=== PATIENT | female | born 1960 | race American Indian/Alaskan Native ===

== ENCOUNTER 2016-11-17 16:14 | Observation (INO) | payer MEDICAID ==
[2016-11-17 16:47] VITALS: BMI 25.4
--- NOTE | 2016-11-17 17:40 | ED PDOC ---
Arrival/HPI - General Chief Complaint: Chest Pain Time Seen by Provider: 11/17/16 16:21 Historian: Patient - History of Present Illness Narrative History of Present Illness (Text): 11/17/16 17:37 Patient past medical history of hypertension, reports sudden onset of left- sided rib and left upper back pain described as a tightness sensation that was radiating around to the left side of her chest associated with SOB, palpitations , numbness to both hands and tingling sensation to the left arm, states that the episode happened when she was sitting and resting at home around 2 PM, lasted for 1 hour, and resolved on its own, states that she did take 325 mg of ASA and her BP medication - valsartan [employer]GER [employer]ISTR[employer]. Patient states that she has had similar symptoms in the past, intermittently over the past 2 years, states that she has been admitted in the past in this hospital for the following symptoms, however has not seen a regulatory analyst for follow-up. Patient reports no back pain or chest pain at this time. States that her last stress test was done 3 years ago at [facility], she does not know the results of that test. Otherwise: (+) radiation, (-) diaphoresis, (-) dyspnea, (-) pleuritic component , (-) ripping or tearing quality, (-) positional component, (-) exertional component, (-) dizziness, (-) syncope, (-) nausea, (-) vomiting, (-) calf swelling/pain, (-) neuro deficits, (-) recent travel, (-) echo PMD Geronimo. Past Medical History - Provider Review Nursing Documentation Reviewed: Yes - Past History Past History: No Previous - Infectious Disease Hx of Infectious Diseases: None - Tetanus Immunization Tetanus Immunization: Unknown - Cardiac Hx Cardiac Disorders: Yes Hx Hypertension: Yes - Pulmonary Hx Respiratory Disorders: No - Neurological Hx Neurological Disorder: No - HEENT Hx HEENT Disorder: No - Renal Hx Renal Disorder: No - Endocrine/Metabolic Hx Endocrine Disorders: No - Hematological/Oncological Hx Blood Disorders: No - Integumentary Hx Dermatological Disorder: No - Musculoskeletal/Rheumatological Hx Musculoskeletal Disorders: No - Gastrointestinal Hx Gastrointestinal Disorders: No - Genitourinary/Gynecological Hx Genitourinary Disorders: No - Psychiatric Hx Psychophysiologic Disorder: Yes Hx Depression: Yes Hx Emotional Abuse: No Hx Physical Abuse: No Hx Substance Use: No - Past Surgical History Past Surgical History: No Previous - Suicidal Assessment Feels Threatened In Home Enviroment: No Family/Social History - Physician Review Nursing Documentation Reviewed: Yes Family/Social History: CVA/TIA (mother), Hypertension (father) Smoking Status: Never Smoked Hx Alcohol Use: No Hx Substance Use: No Hx Substance Use Treatment: No Allergies/Home Meds Allergies/Adverse Reactions: Allergies No Known Allergies Allergy (Verified 10/04/12 19:40) Home Medications: Home Meds Medication Instructions Recorded Confirmed Atorvastatin [Lipitor] 20 mg PO DAILY 11/17/16 11/17/16 Valsartan [Diovan] 160 mg PO DAILY 11/17/16 11/17/16 Review of Systems - Review of Systems Constitutional: Normal. absent: Fatigue, Weight Change, Fevers ENT: Normal. absent: Hearing Changes, Tinnitus Respiratory: Normal, SOB (prior episodes related to chest pain). absent: Cough , Sputum Cardiovascular: Normal, Chest Pain (prior episodes x 2 yrs), Palpitations ( prior episodes related to chest pain ). absent: Edema Gastrointestinal: Normal. absent: Abdominal Pain, Stool Changes, Appetite Changes Musculoskeletal: Normal. absent: Arthralgias, Back Pain Skin: Normal. absent: Rash, Pruritis, Skin Lesions Neurological: Normal. absent: Headache, Dizziness, Focal Weakness Physical Exam - Physical Exam Narrative Physical Exam (Text): 11/17/16 17:42 GENERAL APPEARANCE: Patient is awake, alert, oriented x 3, anxious, in no acute distress. SKIN: Warm, dry; (-) cyanosis. EYES: (-) conjunctival pallor. ENMT: Mucous membranes moist. NECK: (-) tenderness, (-) stiffness, (-) lymphadenopathy, (-) JVD. CHEST AND RESPIRATORY: (-) rash, (-) chest wall tenderness. Lungs: (-) rales , (-) rhonchi, (-) wheezes, (-) rub; breath sounds equal bilaterally. HEART AND CARDIOVASCULAR: (-) irregularity; (-) murmur, (-) gallop, (-) rub. ABDOMEN AND GI: Soft; (-) distention, (-) tenderness, (-) palpable pulsatile mass. BACK: (-) midline to paravertebral tenderness. EXTREMITIES: (-) deformity; (-) edema, (-) calf tenderness. (+) distal pulses. NEURO AND PSYCH: Mental status as above. Cranial nerves grossly intact; strength symmetric. Vital Signs Temp Pulse Resp BP Pulse Ox 11/17/16 16:46 98.1 F 79 16 152/103 H 100 Medical Decision Making ED Course and Treatment: 11/17/16 17:43 56 yo F with past medical history of hypertension, but significant family history of VA and hypertension, presents with left-sided chest pain. Patient took aspirin and valsartan prior to arrival. Plan: -- Labs -- Heart monitor -- Urinalysis -- EKG -- CXR -- Reassess and disposition EKG: NSR at 70 bpm, (-) acute ST changes, as read by ANDREW. CXR : NAD, as read by ANDREW 11/17/16 19:20 On reevaluation, patient appears well, he remains awake, alert, oriented 3. Patient has no complaints of any chest pain, shortness of breath, palpitations, back pain or diaphoresis at this time. On exam, lungs remain clear to auscultation, cardiac regular rate and rhythm. Vital signs are stable. Labs reviewed, troponin and CK-MB are both negative. Called patient's PMD for disposition. Case discussed with Dr. Ferreira, agrees with plan for inpatient telemetry observation for further evaluation of patient's symptoms. Requesting for consult to Dr. Rigoberto Mock for cardiology Patient states she fully agrees with and understands current plan and disposition. I have given the patient opportunity to ask any additional questions. Bridge orders and consults placed. - Lab Interpretations Lab Results: 11/17/16 17:45 11/17/16 17:45 Lab Results 11/17/16 17:45: WBC 4.4 L D, RBC 4.16, Hgb 11.8 L, Hct 36.2, MCV 87.0, MCH 28.4 , MCHC 32.6, RDW 15.0 H, Plt Count 204, MPV 12.2 H, Gran % 37.9 L, Lymph % (Auto ) 51.0 H, [place] % (Auto) 9.1 H, Eos % (Auto) 0.9 L, Baso % (Auto) 1.1, Gran # 1.66, Lymph # 2.2, [place] # 0.4, Eos # 0.0, Baso # 0.05, Sodium 141, Potassium 4.2 , Chloride 103, Carbon Dioxide 31, Anion Gap 11, BUN 10, Creatinine 0.8, Est GFR ( Amer) > 60, Est GFR (Non-Af Amer) > 60, Random Glucose 83, Calcium 9.5, Magnesium 2.2, Total Bilirubin 0.3, AST 44 H, ALT 39, Alkaline Phosphatase 85, Lactate Dehydrogenase 781 H, Total Creatine Kinase 314 H, CK-MB (CK-2) 3.0, CK-MB (CK-2) % Cancelled, Troponin I < 0.01, Total Protein 7.8, Albumin 4.2, Globulin 3.6, Albumin/Globulin Ratio 1.2, Urine Color Straw, Urine Appearance Clear, Urine pH 6.5, Ur Specific Gilbert 1.010, Urine Protein Negative, Urine Glucose (UA) Negative, Urine Ketones Negative, Urine Blood Negative, Urine Nitrate Negative, Urine Bilirubin Negative, Urine Urobilinogen 0.2, Ur Leukocyte Esterase Negative I have reviewed the lab results: Yes (trop (-), ck mb (-)) - RAD Interpretation Radiology Orders: 11/17/16 17:22 CHEST PORTABLE [RAD] Stat - PA / [employer]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 Disposition/Present on Arrival - Present on Arrival Any Indicators Present on Arrival: No History of DVT/PE: No History of Uncontrolled Diabetes: No Urinary Catheter: No History of Decub. Ulcer: No History Surgical Site Infection Following: None - Disposition Have Diagnosis and Disposition been Completed?: Yes Diagnosis: Chest pain Disposition: HOSPITALIZED Disposition Time: 19:00 Patient Plan: Observation, Telemetry (obs inpatient) Condition: STABLE Referrals: Tomasz Geronimo DO [Primary Care Provider] - Follow up with primary
[2016-11-17 17:46] LABS: ADD MANUAL DIFF? NO
[2016-11-17 18:01] LABS: BASO # 0.05 K/mm3 (0.0-2.0); BASO % 1.1 % (0.0-3.0); EOS % 0.9 % (1.5-5.0); GRAN # 1.66 (1.4-6.5); GRAN % 37.9 % (50.0-68.0); HEMATOCRIT 36.2 % (36.0-48.0); LYMPH # 2.2 (1.2-3.4); MEAN CORPUSCULAR HEMOGLOBIN 28.4 pg (25.0-35.0); MEAN CORPUSCULAR HGB CONC 32.6 g/dl (31.0-37.0); MEAN PLATELET VOLUME 12.2 fl (7.0-11.0); MONO # 0.4 (0.1-0.6); MONO % 9.1 % (1.0-6.0); PLATELET COUNT 204 10^3/uL (120.0-450.0); WHITE BLOOD COUNT 4.4 10^3/ul (4.5-11.0)
[2016-11-17 18:04] LABS: PH,URINE 6.5 (4.7-8.0); URINE BILIRUBIN NEGATIVE (NEGATIVE); URINE BLOOD NEGATIVE (NEGATIVE); URINE GLUCOSE (UA) NEGATIVE (NEGATIVE); URINE KETONE NEGATIVE (NEGATIVE); URINE LEUKOCYTE ESTERASE NEGATIVE Leu/uL (NEGATIVE); URINE PROTEIN NEGATIVE mg/dL (<30 mg/dL); URINE UROBILINOGEN 0.2 E.U./dL (<1 E.U./dL)
[2016-11-17 18:05] LABS: URINE APPEARANCE CLEAR (CLEAR); URINE COLOR STRAW (YELLOW)
[2016-11-17 18:07] LABS: ALB/GLOB RATIO 1.2 (1.1-1.8); ALKALINE PHOSPHATASE 85 U/L (38-133); ALT/SGPT 39 U/L (7-56); AST/SGOT 44 U/L (15-39); BILIRUBIN,TOTAL 0.3 mg/dL (0.2-1.3); BLOOD UREA NITROGEN 10 mg/dL (7-21); CALCIUM 9.5 mg/dL (8.4-10.5); CARBON DIOXIDE 31 mmol/L (21-33); CHLORIDE 103 mmol/L (98-107); GFR AFRICAN-AMERICAN > 60; GLUCOSE,RANDOM 83 mg/dL (70-110); MAGNESIUM 2.2 mg/dL (1.7-2.2); POTASSIUM 4.2 mmol/L (3.6-5.0); SODIUM 141 mmol/L (132-148); TOTAL PROTEIN 7.8 g/dL (5.8-8.3)
[2016-11-17 18:24] LABS: TROPONIN I < 0.01 ng/mL
--- NOTE | 2016-11-17 21:38 | CARD ---
APPROVED REPORT EKG Measurement Heart [id number] <Conclusion> Normal sinus rhythm Normal ECG
[2016-11-17 23:25] VITALS: RESP 18
[2016-11-18 06:46] VITALS: O2SAT 99
[2016-11-18 07:09] LABS: HEMATOCRIT 32.9 % (36.0-48.0); MEAN CELL VOLUME 86.8 fL (80.0-105.0); MEAN CORPUSCULAR HEMOGLOBIN 28.2 pg (25.0-35.0); MEAN CORPUSCULAR HGB CONC 32.5 g/dl (31.0-37.0); MEAN PLATELET VOLUME 12.7 fl (7.0-11.0); WHITE BLOOD COUNT 5.3 10^3/ul (4.5-11.0)
[2016-11-18 07:13] LABS: ALB/GLOB RATIO 1.1 (1.1-1.8); ALKALINE PHOSPHATASE 65 U/L (38-133); ALT/SGPT 32 U/L (7-56); AST/SGOT 35 U/L (15-39); BILIRUBIN,TOTAL 0.4 mg/dL (0.2-1.3); BLOOD UREA NITROGEN 12 mg/dL (7-21); CALCIUM 8.8 mg/dL (8.4-10.5); CARBON DIOXIDE 30 mmol/L (21-33); CHLORIDE 107 mmol/L (98-107); GFR AFRICAN-AMERICAN > 60; GLUCOSE,RANDOM 94 mg/dL (70-110); SODIUM 140 mmol/L (132-148); TOTAL PROTEIN 6.8 g/dL (5.8-8.3)
[2016-11-18 07:27] LABS: TROPONIN I < 0.01 ng/mL
--- NOTE | 2016-11-18 08:27 | DS ---
She is feeling better, slept well. No chest pain anymore. Her arms do get stiff from time to time. PHYSICAL EXAMINATION: VITAL SIGNS: She has 98.4 temp, 80 pulse, 137/82 blood pressure, 18 respiratory rate, 99% O2 sat on room air. HEENT: Head is atraumatic, normocephalic. HEART: Regular rate. LUNGS: Clear to auscultation. ABDOMEN: Soft. EXTREMITIES: No edema. MEDICATIONS: She will take her Lipitor, Diovan. LABORATORY DATA: Good. All 3 troponins were negative. I am going to increase her diet to regular f ood, 2 gram sodium. It was okay with Dr. Mock this morning, will discharge her to outpatient followu p. I think she will do very well. Tomasz Geronimo DO cc: [id number] TT: 11/18/2016 08:26:09 curtis
--- NOTE | 2016-11-18 08:53 | RAD ---
HISTORY: Chest pain COMPARISON: 05/13/2014. FINDINGS: LUNGS: The lungs are well inflated and clear. PLEURA: No significant pleural effusion identified, no pneumothorax apparent. CARDIOVASCULAR: Normal. OSSEOUS STRUCTURES: No significant abnormalities. VISUALIZED UPPER ABDOMEN: Normal. OTHER FINDINGS: None. IMPRESSION: No active pulmonary disease.
--- NOTE | 2016-11-18 09:02 | HP ---
I saw the patient in her room at [facility]. She had a sudden onset of left-sided rib pa in, left upper back pain, tightness sensation. It went into the left side of her chest, shortness of breath, palpitation, numbness, tingling left arm. It happened when she was resting. She took an as pirin 325 and her blood pressure meds, which was valsartan. She had similar episodes like this in th e past, has not seen a fast food worker and is now here in the hospital getting troponins and cardiology evaluation. PAST MEDICAL HISTORY: Hypertension, depression. PAST SURGICAL HISTORY: No surgeries. FAMILY HISTORY: There is a CVA, TIA with the mother, hypertension with the father. SOCIAL HISTORY: She never smoked. No alcohol, no drugs. ALLERGIES: No known drug allergies. She has high cholesterol and she has hypertension. MEDICATIONS: She takes Lipitor and Diovan. REVIEW OF SYSTEMS: No acute vision changes, no acute hearing changes, no sore throat, no neck pain. Not fatigued. No weight change, no fever, no ringing in the ears. There is some shortness of breat h when she gets the chest pain and tightness. There is chest pain and tightness and palpitations. N o swelling of the legs. No nausea, vomiting, constipation, diarrhea. She has good appetite. She ca n move all 4 extremities well, even though there is some numbness and pains in the left arm. Skin fo r the most part is intact. No rashes or lesions. Not dizzy. No focal weakness. PHYSICAL EXAMINATION: VITAL SIGNS: She has 98.1 temperature, 79 pulse, 16 respiratory rate, 152/103 blood pressure, 100% O 2 sat. The blood pressure did come down to 139/80. HEENT: Head is atraumatic, normocephalic. Alert and oriented x 3. No acute distress. Throat is mo ist, no erythema. NECK: Supple, no JVD. HEART: Regular rate. LUNGS: Have decreased breath sounds, but clear to auscultation bilaterally. No wheezes, no rhonchi, no rales. ABDOMEN: Soft, nontender, positive bowel sounds, no guarding, no rebound, no CVA tenderness. EXTREMITIES: Have no edema. NEUROLOGIC: She is alert and oriented x 3. Cranial nerves II-XII grossly intact. LYMPHATIC: Thyroid midline. No palpable appreciative lymphadenopathy. LABORATORIES: She had multiple. She has a 5.3 white count, 10.7 hemoglobin, 32.9 hematocrit with 19 7 platelets. Sodium 140, potassium is 4, BUN 12, creatinine 0.8, GFR is greater than 60, sugar is 94 , calcium is 8.8, total bili is 0.4, AST 35, ALT is 32, alkaline phosphatase 65. Lactic dehydrogenas e 781, a little bit high. All 3 troponins are less than 0.01. Total protein 6.8. Urine was clean. EKG, normal sinus rhythm. Chest x-ray is pending. There is a consult with Dr. Mock. I am hoping that after she sees Dr. Mock, he can agree for outpati ent stress test possibly and we can discharge her today. She is in observation. She is here for lef t chest pain, shortness of breath. My plan is to discharge her later today. The patient has chest p ain, left arm pain and tightness with a history of hypertension and high cholesterol. Tomasz Geronimo DO cc: [id number] TT: 11/18/2016 09:01:16 en
[2016-11-18 11:51] VITALS: BP 131/81; TEMP 97.1
--- NOTE | 2016-11-18 13:51 | CON ---
DATE: 11/18/2016 HISTORY OF PRESENT ILLNESS: The patient is a 56-year-old woman who presents with atypical focal righ t-sided chest discomfort. PAST MEDICAL HISTORY: Includes a history of hypertension and recurrent palpitations. No previous ca rdiac history is noted. She denies diabetes mellitus. SOCIAL HISTORY: The patient is not an active smoker. REVIEW OF SYSTEMS: A 14-point review of systems was reviewed in detail. Her cardiac symptomatology has resolved. PHYSICAL EXAMINATION: VITAL SIGNS: Stable, heart rate is stable. NECK: Negative JVD. LUNGS: Without rales. HEART: Revealed S1, S2. EXTREMITIES: Without edema. EKG is unremarkable. Troponins are negative x 3. IMPRESSION: 1. Atypical chest pain. 2. No evidence for acute coronary syndrome. 3. Palpitations. 4. Hypertension. Given these findings, the patient can be discharged given her lack of evidence for an acute cardiac i ssues. I will arrange for an outpatient stress test given her cardiac risk factors. Rigoberto Mock MD cc: [id number] TT: 11/18/2016 13:51:07 Confirmation # [id number] Dictation # [id number]
[2016-11-18 15:04] VITALS: PULSE 69
== END 2016-11-18 15:14 | disposition home or self-care (01) ==
LOC: ED 16:14 → ERH 19:48 → 2RNO 21:33
PROVIDERS: ADMIT Family Medicine; ATTEND Family Medicine
DX: R07.89 Other chest pain (principal); R00.2 Palpitations; I10 Essential (primary) hypertension; E78.00 Pure hypercholesterolemia, unspecified; M79.602 Pain in left arm; Z79.899 Other long term (current) drug therapy; Z82.3 Family history of stroke; Z82.49 Family history of ischemic heart disease and other diseases of the circulatory system
CPT/HCPCS: 36415; 71010; 80053; 81003; 82550; 82553; 83615; 83735; 84484; 85025; 85027; 93005; 99281; G0378

== ENCOUNTER 2018-07-22 07:04 | Observation (INO) | payer MEDICAID ==
[2018-07-22 07:40] VITALS: BMI 26.6
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
[2018-07-22 08:14] LABS: BASO # 0.05 K/mm3 (0.0-2.0); BASO % 0.6 % (0.0-3.0); EOS % 0.5 % (1.5-5.0); GRAN # 1.8 (1.4-6.5); GRAN % 23.4 % (50.0-68.0); HEMOGLOBIN 11.2 g/dL (12.0-16.0); LYMPH # 5.1 (1.2-3.4); LYMPH % 65.9 % (22.0-35.0); MEAN CELL VOLUME 90.1 fl (80.0-105.0); MEAN CORPUSCULAR HEMOGLOBIN 29.1 pg (25.0-35.0); MEAN CORPUSCULAR HGB CONC 32.3 g/dl (31.0-37.0); MEAN PLATELET VOLUME 12.4 fl (7.0-11.0); MONO # 0.7 (0.1-0.6); MONO % 9.6 % (1.0-6.0); RBC 3.85 10^6/uL (3.5-6.1); RED CELL DISTRIBUTION WIDTH 13.9 % (11.5-14.5); WHITE BLOOD COUNT 7.7 10^3/uL (4.5-11.0)
[2018-07-22 08:44] LABS: ALB/GLOB RATIO 1.3 (1.1-1.8); ALBUMIN 4.2 g/dL (3.0-4.8); ALT/SGPT 21 U/L (7-56); AST/SGOT 27 U/L (14-36); BLOOD UREA NITROGEN 11 mg/dL (7-21); CALCIUM 9.3 mg/dL (8.4-10.5); GFR NON-AFRICAN AMERICAN > 60
[2018-07-22 08:56] LABS: B-TYPE NATRIURETIC PEPTIDE 59.2 pg/mL (0-450); TROPONIN I < 0.01 ng/mL
--- NOTE | 2018-07-22 10:36 | RAD ---
Date of service: 07/22/2018 HISTORY: sob COMPARISON: 05/08/2017 TECHNIQUE: Chest PA and lateral FINDINGS: LUNGS: No active pulmonary disease. PLEURA: No significant pleural effusion identified. No pneumothorax apparent. CARDIOVASCULAR: No aortic atherosclerotic calcification present. Normal cardiac size. No pulmonary vascular congestion. 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 VISUALIZED UPPER ABDOMEN: Normal. OTHER FINDINGS: None. IMPRESSION: No active disease.
[2018-07-22] MEDS ORDERED: Pneumococcal 23-Valent Vaccine IM ONE (14:25)
[2018-07-22] MEDS ORDERED: Influenza Vaccine 60 mcg/0.5 mL SYR (4YR UP) IM ONE (14:25)
[2018-07-22] MEDS ORDERED: Fluticasone Nasal 50 mcg/Spray NS PRN (14:34)
--- NOTE | 2018-07-22 14:45 | CARD ---
APPROVED REPORT Date of service: 07/22/2018 EKG Measurement Heart [id number] <Conclusion> Normal sinus rhythm Normal ECG
--- NOTE | 2018-07-22 15:45 | CON ---
DATE: 07/22/2018 CARDIOLOGY CONSULTATION HISTORY: The patient is a 58-year-old woman, who suffers from hypertension, hypercholesterolemia, and is on medications for rheumatoid arthritis. She apparently had medications changed for her blood pressure as well as had a flu shot and developed discomfort as well as intermittent shortness of breath. All these symptoms have now resolved. The patient underwent a stress test 1 year ago for similar symptoms where her stress test was normal with normal LV function. She denies diabetes mellitus. SOCIAL HISTORY: The patient does not smoke, but does smoke marijuana REVIEW OF SYSTEMS: Fourteen-point review of systems was reviewed. No cardiac symptoms are noted. PHYSICAL EXAMINATION: VITAL SIGNS: Blood pressure is 141/96, heart rate is in the 70s. NECK: Negative JVD. LUNGS: Without rales. HEART: Reveals S1, S2. EXTREMITIES: Without edema. IMAGING DATA: EKG shows no acute changes. LABORATORY DATA: Troponin is negative x1. Hemoglobin is 11.2. IMPRESSION: 1. Atypical chest pain. 2. No evidence for acute coronary syndrome. 3. Hypertension. 4. Hypercholesterolemia. 5. Rheumatoid arthritis. PLAN: Given these findings, it is unlikely the patient's symptoms are from an ischemic cardiac episode. We will obtain a troponin in the morning. If negative, the patient can be discharged, and we will arrange for an outpatient stress test. Rigoberto Mock MD
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
[2018-07-23 02:32] VITALS: RESP 20
[2018-07-23 06:39] LABS: HEMOGLOBIN 11.5 g/dL (12.0-16.0); MEAN CELL VOLUME 90.6 fl (80.0-105.0); MEAN CORPUSCULAR HEMOGLOBIN 28.5 pg (25.0-35.0); MEAN CORPUSCULAR HGB CONC 31.4 g/dl (31.0-37.0); MEAN PLATELET VOLUME 12.3 fl (7.0-11.0); RBC 4.04 10^6/uL (3.5-6.1); RED CELL DISTRIBUTION WIDTH 13.9 % (11.5-14.5); WHITE BLOOD COUNT 6.8 10^3/uL (4.5-11.0)
[2018-07-23 06:50] LABS: BLOOD UREA NITROGEN 12 mg/dL (7-21); CALCIUM 9.3 mg/dL (8.4-10.5); GFR NON-AFRICAN AMERICAN > 60
[2018-07-23 07:02] LABS: TROPONIN I < 0.01 ng/mL
[2018-07-23 08:43] VITALS: BP 138/90; PULSE 89; TEMP 98; O2SAT 97
[2018-07-23] MEDS ORDERED: Cholecalciferol 1,000 INTLU TAB PO SCH (10:00)
--- NOTE | 2018-07-23 13:34 | PN ---
DATE: 07/23/2018 CARDIOLOGY FOLLOWUP SUBJECTIVE: The patient is complaining of her breakfast and not getting coffee in the morning, but no angina noted. PHYSICAL EXAMINATION: VITAL SIGNS: Blood pressure is 138/90, heart rate is in the 80s. NECK: Negative JVD. LUNGS: Without rales. HEART: S1, S2. EXTREMITIES: Without edema. LABORATORY DATA: Hemoglobin is 11.5. Troponins are negative x4. IMPRESSION: 1. Atypical chest pain. 2. No evidence for acute coronary syndrome. 3. History of hypertension. 4. Diffuse body aches. 5. Hypercholesterolemia. Given these findings, there is no evidence for acute coronary syndrome. From a cardiac perspective, the patient can be discharged. We will arrange for an outpatient stress test. Rigoberto Mock MD
--- NOTE | 2018-07-23 16:10 | DS ---
HISTORY OF PRESENT ILLNESS: She is sitting up in bed, feeling well. No complaints. Good spirits. No chest pain, no shortness of breast. MEDICATIONS: She is on Caltrate, Cozaar, Flonase, folic acid, Lipitor, Motrin, Norvasc up to 10 mg, [place]ill spray, prednisone 10, vitamin D and Zoloft. PHYSICAL EXAMINATION: VITAL SIGNS: She has a 98 temperature; 89 pulse; 138/90 blood pressure, it was 141/101, I increased her Norvasc to 10 now; respiratory rate is 20 and oxygen sat is 97%. HEENT: Head is atraumatic, normocephalic. She is walking well, breathing well. No chest pain or shortness of breath. HEART: Regular rate. LUNGS: Decreased breath sounds but clear. ABDOMEN: Soft. EXTREMITIES: No edema. LABORATORY DATA: She has a 6.8 white count, 11.5 hemoglobin, 36.6 hematocrit with 180 platelets. Sodium 140, potassium 4.3, BUN is 12, creatinine 0.7, GFR is greater than 60, sugar is 112. Calcium is 9.3. All other troponins are less than 0.01. She was seen by Dr. Mock. She will have an outpatient stress test. We will see her in the office next week. She can continue the same meds and she will call me if she needs anything. She was here for chest pain and shortness of breath. Tomasz Geronimo DO
== END 2018-07-23 12:21 | disposition home or self-care (01) ==
LOC: ED 07:04 → ERH 09:59 → 2RNO 12:40
PROVIDERS: ADMIT Family Medicine; ATTEND Family Medicine
DX: R07.89 Other chest pain (principal); J44.9 Chronic obstructive pulmonary disease, unspecified; I10 Essential (primary) hypertension; E78.00 Pure hypercholesterolemia, unspecified; M06.9 Rheumatoid arthritis, unspecified; F12.90 Cannabis use, unspecified, uncomplicated; F32.9 Major depressive disorder, single episode, unspecified; F41.9 Anxiety disorder, unspecified
CPT/HCPCS: 36415; 71046; 80048; 80053; 83735; 83880; 84484; 85025; 85027; 93005; 99284; G0378

== ENCOUNTER 2018-09-10 06:20 | Day surgery (SDC) | payer MEDICAID ==
[2018-09-10] MEDS ORDERED: Propofol 10 mg/ml Inj (20 ML) ONE ×3 (07:56→09:03)
[2018-09-10] MEDS ORDERED: Lidocaine PF 2% (5 ml) Inj (For Cardiac Arrhy) ONE (07:56)
[2018-09-10 09:24] VITALS: TEMP 98
[2018-09-10] MEDS ORDERED: Sodium Chloride 0.9% 1,000 ML IV SCH (09:30)
[2018-09-10 11:32] VITALS: BP 128/87; PULSE 71; RESP 16; O2SAT 100
== END 2018-09-10 10:49 | disposition home or self-care (01) ==
LOC: ENDO 06:20
PROVIDERS: ATTEND Internal Medicine Gastroenterology
DX: Z12.11 Encounter for screening for malignant neoplasm of colon (principal); D12.4 Benign neoplasm of descending colon; K63.5 Polyp of colon; K57.30 Diverticulosis of large intestine without perforation or abscess without bleeding; K64.1 Second degree hemorrhoids; K21.0 Gastro-esophageal reflux disease with esophagitis; K29.70 Gastritis, unspecified, without bleeding; K44.9 Diaphragmatic hernia without obstruction or gangrene
CPT/HCPCS: 43239; 45380; 45381; 45385; 88305; 88312; 88342; J2704; J7030; J7040